=== PATIENT | female | born 1965 | race Hispanic/Latino ===

== ENCOUNTER 2016-08-27 16:18 | Emergency (ER) | payer OTHER ==
[2016-08-27 16:36] VITALS: TEMP 98
[2016-08-27] MEDS ORDERED: Sodium Chloride 0.9% 1,000 ML IV ONE (17:09)
[2016-08-27] MEDS ORDERED: Sodium Chloride 0.9% 1,000 ML ONE (17:29)
--- NOTE | 2016-08-27 17:45 | RAD ---
HISTORY: cp/epigastric pain COMPARISON: Upper TECHNIQUE: Chest PA and lateral FINDINGS: LUNGS: The lungs are well inflated and clear. PLEURA: No significant pleural effusion identified. No pneumothorax apparent. CARDIOVASCULAR: Normal. OSSEOUS STRUCTURES: No significant abnormalities. VISUALIZED UPPER ABDOMEN: Normal. OTHER FINDINGS: None. IMPRESSION: No active pulmonary disease.
[2016-08-27 17:52] LABS: BASO # 0.1 K/uL (0.0-0.2); BASO % 0.5 % (0.0-2.0); EOS % 9.4 % (0.0-4.0); HEMATOCRIT 41.2 % (34.0-47.0); LYMPH % 19.6 % (20.0-40.0); MEAN CELL VOLUME 87.9 fL (81.0-99.0); MEAN CORPUSCULAR HEMOGLOBIN 28.8 pg (27.0-31.0); MEAN CORPUSCULAR HGB CONC 32.7 g/dL (33.0-37.0); MEAN PLATELET VOLUME 8.4 fL (7.2-11.7); MONO # 0.7 K/uL (0.0-0.8); MONO % 6.4 % (0.0-10.0); RED CELL DISTRIBUTION WIDTH 12.2 % (11.5-14.5); WHITE BLOOD COUNT 10.2 K/uL (4.8-10.8)
[2016-08-27 17:54] LABS: CHLORIDE 97 mmol/L (98-107)
[2016-08-27 17:55] LABS: POTASSIUM 4.5 mmol/L (3.6-5.2); SODIUM 139 mmol/L (132-148)
[2016-08-27 17:57] LABS: BILIRUBIN,TOTAL 0.3 mg/dL (0.2-1.3); CARBON DIOXIDE 29 mmol/L (22-30); GFR AFRICAN-AMERICAN > 60
[2016-08-27 17:58] LABS: ALB/GLOB RATIO 1.5 (1.0-2.1); ALKALINE PHOSPHATASE 81 U/L (38-126); ALT/SGPT 46 U/L (9-52); AST/SGOT 71 U/L (14-36); BLOOD UREA NITROGEN 13 mg/dL (7-17); CALCIUM 8.7 mg/dl (8.6-10.4); GLUCOSE,RANDOM 83 mg/dL (65-105); TOTAL PROTEIN 6.7 g/dL (6.3-8.3)
--- NOTE | 2016-08-27 18:21 | C.PDOC ---
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 Patient states the pain started after she ate steak, rice, and green beans. She describes the chest pain as constant and a squeezing sensation, while the epigastric pain is burning. She notes the pain radiates up to her bilateral shoulders. Patient denies history of DM, HTN, family cardiac history, smoking, vomiting, diarrhea, fever, cough, SOB, palpitations. Time Seen by Provider: 08/27/16 16:29 Chief Complaint (Nursing): Chest Pain History Per: Patient History/Exam Limitations: no limitations Onset/Duration Of Symptoms: Mins Current Symptoms Are (Timing): Still Present Severity: Mild Quality: Burning Associated Symptoms: denies: Nausea, Dyspnea Past Medical History Reviewed: Historical Data, Nursing Documentation, Vital Signs Vital Signs: Last Vital Signs Temp 98 F 08/27/16 16:34 Pulse 63 08/27/16 18:46 Resp 19 08/27/16 18:46 BP 95/51 L 08/27/16 18:46 Pulse Ox 97 08/27/16 18:46 - Medical History PMH: Asthma Surgical History: Appendectomy, Cholecystectomy, Family History: States: No Known Family Hx - Social History Hx Alcohol Use: No Hx Substance Use: No Review Of Systems Except As Marked, All Systems Reviewed And Found Negative. Constitutional: Positive for: Sweats. Negative for: Fever, Chills Cardiovascular: Positive for: Chest Pain, Light Headedness. Negative for: Palpitations Respiratory: Negative for: Cough, Shortness of Breath Gastrointestinal: Positive for: Nausea, Abdominal Pain (+Epigastric pain). Negative for: Vomiting, Diarrhea Physical Exam - Physical Exam Appears: Well, Non-toxic, Other (+Mild discomfort) Skin: Normal Color, Warm, Dry, No Rash Head: Normacephalic Eye(s): bilateral: Normal Inspection Oral Mucosa: Moist Neck: Supple Chest: Symmetrical, No Deformity, No Tenderness Cardiovascular: Rhythm Regular, No Murmur Respiratory: Normal Breath Sounds, No Rales, No Rhonchi, No Wheezing Gastrointestinal/Abdominal: Bowel Sounds, Soft, Tenderness (+Mild epigastric tenderness), No Distention, No Guarding, No Rebound, Other (+multiple well healed surgical scars, (-) Chaudhry's, (-) McBurney's) Back: No CVA Tenderness Extremity: Normal ROM Neurological/Psych: Oriented x3 ED Course And Treatment - Laboratory Results Result Diagrams: 08/27/16 17:41 08/27/16 17:41 O2 Sat by Pulse Oximetry: 98 (Room air) Pulse Ox Interpretation: Normal - Radiology CXR: Viewed By Me, Read By Radiologist CXR Interpretation: Yes: No Acute Disease Progress Note: Blood work, CXR, UA and Upreg ordered and reviewed. Patient given IV NS bolus, IV zofran and IV pepcid. 18:50- Patient reassesed, is resting comfortably, in no current distress. Abdomen is soft and nontender. Blood work WNL. Suspect esophageal spasm vs GERD. Patient given Rx for Protonix, and she was instructed to follow up with Gi within 1 week. She understands she should return to Ed if symptoms worsen. Reevaluation Time: 18:05 Reassessment Condition: Improved (On reassessment, patient still c/o epigastric pain. 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 USE MEDICATION DAILY AVOID SPICY/ACIDIC FOODS/DRINKS RETURN TO EMERGENCY ROOM IF SYMPTOMS WORSEN SEGUIMIENTO CON MO DOCTOR / CLNICA EN 1-2 BUCHANAN Y CON GASTROENTERLOGO DENTRO DE 1 SEMANA USE MEDICAMENTOS DIARIAMENTE EVITE LOS ALIMENTOS / BEBIDAS PICANTE / ACIDICOS DEVUELVA A LA RANDI DE EMERGENCIA SI LOS SNTOMAS EMPEORARAN Prescriptions: Pantoprazole [Protonix EC Tab] 20 mg PO DAILY #30 ect Instructions: Epigastric Pain (ED) Print Language: MAORI - POA Present On Arrival: None - Clinical Impression Clinical Impression: Epigastric abdominal pain, Esophageal pain - Scribe Statement The provider has reviewed the documentation as recorded by the Scribe Tyrell Dawn. Provider Attestation: All medical record entries made by the Scribe were at my direction and personally dictated by me. I have reviewed the chart and agree that the record accurately reflects my personal performance of the history, physical exam, medical decision making, and the department course for this patient. I have also personally directed, reviewed, and agree with the discharge instructions and disposition.
[2016-08-27 18:47] VITALS: BP 95/51; PULSE 63; RESP 19
[2016-09-10 05:05] VITALS: O2SAT 98
--- NOTE | 2016-09-13 13:16 | CARD ---
APPROVED REPORT EKG Measurement Heart [id number] <Conclusion> Normal sinus rhythm Normal ECG
== END 2016-08-27 19:20 | disposition home or self-care (01) ==
LOC: C.ER 16:18
DX: R10.13 Epigastric pain (principal)
CPT/HCPCS: 71020; 80053; 82550; 82553; 82948; 83690; 84484; 84703; 85025; 96361; 96374; 96375; 99285; J1885; J2405; J7040

== ENCOUNTER 2017-03-03 06:47 | Day surgery (SDC) | payer OTHER ==
[2017-03-03 07:11] VITALS: BMI 31.2
[2017-03-03] MEDS ORDERED: Propofol 10 mg/ml Inj (20 ML) ONE (07:48)
--- NOTE | 2017-03-03 08:02 | CP.SDSHP ---
Same Day Surgery H & P - History Proposed Procedure: EGD Pre-Op Diagnosis: SEE NOTES - Previous Medical/Surgical History Cardiac: Valvular Heart Disease Pulmonary: Asthma Misc: Other Pain: 4.Moderate Pain - Allergies Allergies: Allergies diphenhydramine HCl [From Benadryl] Allergy (Verified 08/27/16 16:36) fruits Allergy (Uncoded 01/07/17 15:12) RASH seafood Allergy (Uncoded 08/27/16 16:36) - Physical Exam General Appearance: N Vital Signs: Vital Signs 03/03/17 03/03/17 07:00 07:56 Temperature 97.6 F 97.6 F Pulse Rate 59 L 59 L Respiratory 19 19 Rate Blood Pressure 110/42 L 110/42 L O2 Sat by Pulse 97 99 Oximetry Mental Status: Alert & Oriented x3 Neuro: WNL Heart: Other Lungs: Other GI: WNL - {Optional Preform as Required} Breast: WNL Abdomen: Other Rectal: Other Integument: WNL : WNL Ortho: WNL ENT: WNL - Impression Pt. Evaluated Today:Candidate for Anesthesia & Procedure: Yes - Date & Time Time: 08:02 Short Stay Discharge - Short Stay Discharge Admitting Diagnosis/Reason for Visit: DYSPEPSIA Disposition: HOME/ ROUTINE
[2017-03-03] MEDS ORDERED: Lactated Ringer's 500 ML IV SCH (08:15)
[2017-03-03 08:29] VITALS: TEMP 97.9
[2017-03-03] MEDS ORDERED: Pantoprazole 40 mg EC Tab PO ONE (08:45)
[2017-03-03 08:52] VITALS: O2SAT 100
[2017-03-03 10:56] VITALS: BP 112/67; PULSE 60; RESP 12
== END 2017-03-03 10:54 | disposition home or self-care (01) ==
LOC: C.ENDO 06:47
PROVIDERS: ATTEND Specialist
DX: K30 Functional dyspepsia (principal); K44.9 Diaphragmatic hernia without obstruction or gangrene; K29.00 Acute gastritis without bleeding
CPT/HCPCS: 43239; 84703; 88305; 88342; J1580; J2001; J2704; J3010; J3370; J7120